=== PATIENT | female | born 1955 | race Two or more races ===

== ENCOUNTER 2017-04-29 18:14 | Inpatient (IN) | payer MEDICAID, OTHER ==
[~2017-04-29] VITALS: Ht 160 cm; Wt 63.0 kg
[2017-04-29] MEDS ORDERED: ACETAMINOPHEN 500 MG TAB PO ONE ×2 (18:16→18:30)
[2017-04-29 19:13] LABS: Albumin 2.8 g/dL (3.4-5.0); BUN/Creatinine Ratio 22.1; Calcium 8.4 mg/dL (8.5-10.1)
[2017-04-29 19:19] LABS: Basophils # (auto) 0 uL; Basophils % (auto) 0.2 % (0.0-2.0); Eosinophils # (auto) 0 uL; Hematocrit 33.1 % (36.0-46.0); Hemoglobin 10.5 g/dL (12.2-16.2); Lymphocytes # (auto) 0.9 uL; Lymphocytes % (auto) 7.3 % (10.0-50.0); Mean Corpuscular Hemoglobin 28.5 pg (28.0-32.0); Mean Corpuscular Hgb Conc. 31.8 g/dL (32.0-36.0); Mean Corpuscular Volume 89.8 fL (80.0-100.0); Monocytes # (auto) 0.7 uL; Monocytes % (auto) 5.2 % (0.0-12.0); Neutrophils # (auto) 11.3 uL; Neutrophils % (auto) 87.3 % (37.0-80.0); Platelet Count (auto) 263 10^3/uL (140-450); Red Blood Cells 3.69 10^6/uL (4.0-5.20); Red Cell Distribution Width 13.8 % (11.8-14.3)
[2017-04-29 19:22] LABS: Bilirubin, Total 0.2 mg/dL (0.2-1.0)
[2017-04-29 19:35] LABS: Potassium 5.8 mmol/L (3.5-5.1)
[2017-04-29 19:36] LABS: Total Protein 7.9 g/dL (6.4-8.2)
[2017-04-29] MEDS ORDERED: SODIUM CHLORIDE 0.9% 1,000 ML IVB ONE (20:09)
[2017-04-29] MEDS ORDERED: cefTRIAXone 1GM/10ml IVPUSH 10 ML IV ONE ×2 (20:15→22:00)
[2017-04-29 20:38] LABS: INR 0.9 (0.9-1.15); Prothrombin Time 9.8 sec (9.37-12.3)
[2017-04-29] MEDS ORDERED: InsuLIN REG 1unit/0.01ml Soln (100units/ml) IV ONE (20:45)
[2017-04-29] MEDS ORDERED: SODIUM POLYSTYRENE SULF 15GM/60ML SUSP PO ONE (20:45)
[2017-04-29] MEDS ORDERED: CALCIUM GLUC 4.65meq/50ml D5AE 50 ML IV ONE (21:30)
[2017-04-29] MEDS ORDERED: ACETAMINOPHEN 325 MG TAB PO PRN (22:00)
[2017-04-29] MEDS ORDERED: ALBUTEROL SULF 2.5 MG/0.5ML(0.5%) NEB SOLN NEB PRN (22:00)
[2017-04-29] MEDS ORDERED: ONDANSETRON HCL 4 MG/2 ML VIAL IV PRN (22:00)
[2017-04-29] MEDS ORDERED: TEMAZEPAM 15 MG CAP PO PRN (22:00)
[2017-04-29] MEDS ORDERED: HYDROcodone-ACET 5/325MG TAB PO PRN (22:00)
[2017-04-29] MEDS ORDERED: DEXTROSE (50%) 50ML SYRG IV PRN (22:00)
[2017-04-29] MEDS ORDERED: AZITHROMYCIN 500MG/ 250ML 250 ML IV ONE (22:30)
[2017-04-29 22:33] VITALS: BP 134/59
[2017-04-29 22:55] LABS: Urine Bacteria MOD /hpf (None Seen); Urine Blood 1+ /uL (Negative); Urine Specific Gravity 1.022 (1.001-1.035); Urine WBC 26 /hpf (0 - 5)
[2017-04-29 23:00] VITALS: BP 141/80
[2017-04-29 23:15] LABS: Alcohol, Urine < 3.0 mg/dL (0-5); Amphetamine Screen, Urine NEGATIVE (NEGATIVE); Barbiturate Scree,Urine NEGATIVE (NEGATIVE); Benzodiazephine Screen, Urine NEGATIVE (NEGATIVE); Cannabinoid Screen, Urine NEGATIVE (NEGATIVE); Cocaine Screen, Urine NEGATIVE (NEGATIVE); Opiate Scree,Urine NEGATIVE (NEGATIVE); Phencyclidine Screen, Urine NEGATIVE (NEGATIVE)
[2017-04-29 23:34] VITALS: BP 141/80
[2017-04-30] MEDS: SODIUM CHLORIDE 0.9% 1,000 ML IV SCH ×2 (00:08→11:16)
[2017-04-30] MEDS: ACCU-CHEK COMFORT CURVE STRIP VI SCH ×6 (00:08→21:31)
[2017-04-30] MEDS: InsuLIN REG 1unit/0.01ml Soln (100units/ml) SC SCH ×7 (00:09→21:31)
[2017-04-30] MEDS ORDERED: INFLUENZA QUAD 2017-2018 0.5 ML SYRG IM ONE (03:45)
[2017-04-30 05:10] VITALS: BP 126/52
[2017-04-30 06:36] LABS: Basophils # (auto) 0 uL; Basophils % (auto) 0.2 % (0.0-2.0); Eosinophils # (auto) 0 uL; Eosinophils % (auto) 0.1 % (0.0-7.0); Hematocrit 28.3 % (36.0-46.0); Hemoglobin 9.5 g/dL (12.2-16.2); Lymphocytes # (auto) 1.9 uL; Lymphocytes % (auto) 15.1 % (10.0-50.0); Mean Corpuscular Hgb Conc. 33.6 g/dL (32.0-36.0); Mean Corpuscular Volume 86.5 fL (80.0-100.0); Monocytes % (auto) 7.9 % (0.0-12.0); Neutrophils # (auto) 9.7 uL; Neutrophils % (auto) 76.7 % (37.0-80.0); Platelet Count (auto) 225 10^3/uL (140-450); Red Blood Cells 3.27 10^6/uL (4.0-5.20); Red Cell Distribution Width 13.1 % (11.8-14.3); White Blood Cell 12.6 10^3/uL (4.4-10.8)
[2017-04-30 06:51] LABS: Albumin 2.4 g/dL (3.4-5.0); BUN/Creatinine Ratio 25.5; Bilirubin, Total 0.1 mg/dL (0.2-1.0); Calcium 8.6 mg/dL (8.5-10.1); Potassium 3.6 mmol/L (3.5-5.1); Total Protein 6.9 g/dL (6.4-8.2)
[2017-04-30 09:00] VITALS: BP 105/53
[2017-04-30] MEDS: cefTRIAXone 1GM/10ml IVPUSH 10 ML IV SCH (09:29)
[2017-04-30] MEDS: PANTOPRAZOLE 40 MG TAB PO SCH (10:27)
[2017-04-30] MEDS: ENOXAPARIN SOD 30 MG/0.3 ML SYRINGE SC SCH (10:28)
[2017-04-30] MEDS: AZITHROMYCIN 500MG/ 250ML 250 ML IV SCH (10:29)
[2017-04-30] MEDS ORDERED: DEXTROSE (50%) 50ML SYRG IV PRN (12:00)
[2017-04-30 13:00] VITALS: BP 116/60
[2017-04-30 13:26] LABS: % Iron Saturation 4.3 % (15-50)
[2017-04-30 17:00] VITALS: BP 97/46
[2017-04-30] MEDS: INSULIN DETEMIR(LEVEMIR) 1unit/0.01ml Soln (100units/ml) SC SCH (21:31)
[2017-04-30 21:36] VITALS: BP 119/66
[2017-05-01] MEDS: SODIUM CHLORIDE 0.9% 1,000 ML IV SCH ×2 (01:40→14:48)
[2017-05-01 05:20] VITALS: BP 119/62
[2017-05-01] MEDS: InsuLIN REG 1unit/0.01ml Soln (100units/ml) SC SCH ×4 (06:15→21:49)
[2017-05-01] MEDS: INSULIN DETEMIR(LEVEMIR) 1unit/0.01ml Soln (100units/ml) SC SCH (06:15)
[2017-05-01] MEDS: ACCU-CHEK COMFORT CURVE STRIP VI SCH ×4 (06:15→21:42)
[2017-05-01 06:28] LABS: Basophils # (auto) 0 uL; Basophils % (auto) 0.3 % (0.0-2.0); Eosinophils # (auto) 0.1 uL; Eosinophils % (auto) 1.1 % (0.0-7.0); Hematocrit 28.2 % (36.0-46.0); Hemoglobin 9.5 g/dL (12.2-16.2); Lymphocytes # (auto) 2.1 uL; Lymphocytes % (auto) 22.2 % (10.0-50.0); Mean Corpuscular Hemoglobin 29.3 pg (28.0-32.0); Mean Corpuscular Hgb Conc. 33.6 g/dL (32.0-36.0); Monocytes # (auto) 0.8 uL; Monocytes % (auto) 8.8 % (0.0-12.0); Neutrophils # (auto) 6.3 uL; Neutrophils % (auto) 67.6 % (37.0-80.0); Platelet Count (auto) 232 10^3/uL (140-450); Red Blood Cells 3.24 10^6/uL (4.0-5.20); Red Cell Distribution Width 13.3 % (11.8-14.3); White Blood Cell 9.3 10^3/uL (4.4-10.8)
[2017-05-01 06:39] LABS: Potassium 3.1 mmol/L (3.5-5.1)
[2017-05-01 06:44] LABS: BUN/Creatinine Ratio 28.7; Calcium 8.2 mg/dL (8.5-10.1)
[2017-05-01 09:00] VITALS: BP 129/72
[2017-05-01] MEDS: PANTOPRAZOLE 40 MG TAB PO SCH (09:12)
[2017-05-01] MEDS: ENOXAPARIN SOD 30 MG/0.3 ML SYRINGE SC SCH (09:13)
[2017-05-01] MEDS: cefTRIAXone 1GM/10ml IVPUSH 10 ML IV SCH (09:14)
[2017-05-01] MEDS: AZITHROMYCIN 500MG/ 250ML 250 ML IV SCH (09:14)
[2017-05-01] MEDS: guaiFENesin-DM 100/10mg/5ml SYR PO PRN ×3 (09:27→19:52)
[2017-05-01 13:00] VITALS: BP 122/64
[2017-05-01] MEDS ORDERED: POTASSIUM CHL 20 Meq TABLET PO ONE (13:30)
[2017-05-01 16:45] VITALS: BP 135/63
[2017-05-01 22:00] VITALS: BP 167/103
[2017-05-01] MEDS ORDERED: INSULIN DETEMIR(LEVEMIR) 1unit/0.01ml Soln (100units/ml) SC SCH (22:00)
[2017-05-01] MEDS: cloNIDine HCL 0.1 MG TAB PO PRN (23:00)
[2017-05-02 05:00] VITALS: BP 123/62
[2017-05-02] MEDS: ACCU-CHEK COMFORT CURVE STRIP VI SCH ×2 (06:09→11:52)
[2017-05-02] MEDS: InsuLIN REG 1unit/0.01ml Soln (100units/ml) SC SCH ×2 (06:09→11:52)
[2017-05-02] MEDS: SODIUM CHLORIDE 0.9% 1,000 ML IV SCH (06:10)
[2017-05-02 07:18] LABS: Basophils # (auto) 0 uL; Basophils % (auto) 0.6 % (0.0-2.0); Eosinophils # (auto) 0.2 uL; Eosinophils % (auto) 4.7 % (0.0-7.0); Hematocrit 27.2 % (36.0-46.0); Hemoglobin 9.1 g/dL (12.2-16.2); Lymphocytes # (auto) 2.1 uL; Lymphocytes % (auto) 41.2 % (10.0-50.0); Mean Corpuscular Hemoglobin 29.1 pg (28.0-32.0); Mean Corpuscular Hgb Conc. 33.7 g/dL (32.0-36.0); Mean Corpuscular Volume 86.4 fL (80.0-100.0); Monocytes # (auto) 0.5 uL; Monocytes % (auto) 10.6 % (0.0-12.0); Neutrophils # (auto) 2.2 uL; Neutrophils % (auto) 42.9 % (37.0-80.0); Nucleated Red Blood Cells % 0.1 %; Platelet Count (auto) 259 10^3/uL (140-450); Red Blood Cells 3.14 10^6/uL (4.0-5.20); Red Cell Distribution Width 13.2 % (11.8-14.3); White Blood Cell 5.1 10^3/uL (4.4-10.8)
[2017-05-02 07:43] LABS: Calcium 7.9 mg/dL (8.5-10.1); Potassium 3.6 mmol/L (3.5-5.1)
[2017-05-02 09:00] VITALS: BP 151/75
[2017-05-02] MEDS: cefTRIAXone 1GM/10ml IVPUSH 10 ML IV SCH (10:49)
[2017-05-02] MEDS: ENOXAPARIN SOD 30 MG/0.3 ML SYRINGE SC SCH (10:50)
[2017-05-02] MEDS: PANTOPRAZOLE 40 MG TAB PO SCH (10:50)
[2017-05-02] MEDS: AZITHROMYCIN 500MG/ 250ML 250 ML IV SCH (10:50)
[2017-05-02 13:00] VITALS: BP 166/70
[2017-05-02] MEDS ORDERED: LEVO500T21 PO (13:57)
[2017-05-02] MEDS: cloNIDine HCL 0.1 MG TAB PO PRN (14:49)
[2017-05-02] MEDS ORDERED: INFLUENZA QUAD 2017-2018 0.5 ML SYRG IM ONE (15:30)
[2017-05-02 15:40] VITALS: BP 148/70
== END 2017-05-02 16:10 | disposition home or self-care (01) | DRG 720 ==
LOC: ER 18:14 → OVERFLOW 18:15 → WEST WING 23:00
PROVIDERS: ADMIT Nurse Practitioner; ATTEND Internal Medicine
DX: A41.9 Sepsis, unspecified organism (principal); N17.0 Acute kidney failure with tubular necrosis; N18.3 Chronic kidney disease, stage 3 (moderate); E11.21 Type 2 diabetes mellitus with diabetic nephropathy; J18.9 Pneumonia, unspecified organism; E11.22 Type 2 diabetes mellitus with diabetic chronic kidney disease; E87.5 Hyperkalemia; N39.0 Urinary tract infection, site not specified; D63.8 Anemia in other chronic diseases classified elsewhere; I12.9 Hypertensive chronic kidney disease with stage 1 through stage 4 chronic kidney disease, or unspecified chronic kidney disease; F17.210 Nicotine dependence, cigarettes, uncomplicated; E11.65 Type 2 diabetes mellitus with hyperglycemia; Z23 Encounter for immunization; Z82.49 Family history of ischemic heart disease and other diseases of the circulatory system; E44.1 Mild protein-calorie malnutrition
CPT/HCPCS: 36415; 71045; 71046; 80048; 80053; 80061; 80307; 81001; 82270; 82962; 83036; 83540; 83550; 83605; 83735; 84132; 84484; 85025; 85610; 85730; 87040; 87070; 87086; 87205; 87400; 96361; 96365; 96375; 99291; J0610; J1815